=== PATIENT | female | born 1990 | race Caucasian/White ===

== ENCOUNTER 2019-03-20 15:16 | Day surgery (SDC) | payer OTHER ==
[~2019-03-20] VITALS: Ht 162.6 cm; Wt 58.1 kg
[~2019-03-20 15:16] MED LIST: CIPROFLOXACIN 400MG PREMIX 200 ML IV ONE; DEXAMETHASONE SOD PHOS 4 MG/ML VIAL ONE; FAMOTIDINE 20 MG/2 ML VIAL ONE; IV RINGERS,LACTATED 1000ML 1,000 ML IV SCH; KETOROLAC 30 MG/ML INJ FOR OR. INJ ONE; LIDOCAINE 2% PF 5 ML VIAL. ONE; MIDAZOLAM HCL/PF 2 MG/2 ML VIAL. ONE; ONDANSETRON PF 4 MG/2 ML VIAL. IV PRN; ONDANSETRON PF 4 MG/2 ML VIAL. ONE; PROCHLORPERAZINE 10 MG/2 ML VIAL. IV PRN; PROPOFOL 20 ML IV ONE; fentaNYL PF VIAL 100 MCG/2 ML VIAL IV PRN; fentaNYL PF VIAL 100 MCG/2 ML VIAL ONE
[2019-03-20] MEDS ORDERED: OXYC1TAB15 PO (15:39)
[2019-03-20] MEDS ORDERED: ONDA4TAB7 PO (15:40)
[2019-03-20] MEDS ORDERED: HYDR200T5 PO (15:41)
[2019-03-20] MEDS ORDERED: METH20TA5 PO (15:42)
[2019-03-20] MEDS ORDERED: [UNRECOGNIZED DRUG - OTHER] IM (15:43)
[2019-03-20 15:50] LABS: U PREG PATIENT NEGATIVE (NEG)
[2019-03-20] MEDS ORDERED: CIPROFLOXACIN 400MG PREMIX 200 ML IV ONE (15:51)
[2019-03-20] MEDS ORDERED: diphenhydrAMINE 50 MG/ML VIAL ONE (16:27)
[2019-03-20] MEDS ORDERED: IOHEXOL 350 MG/ML 50 ML VIAL. IV ONE (17:08)
--- NOTE | 2019-03-20 17:30 | PDOC4 ---
OPERATIVE NOTE Date: Date: March 20, 2019 Pre-Op Diagnosis: right ureter stone Post-Op Diagnosis: same Procedure Performed: right ureteroscopy, laser of stone, stent placement Surgeon: Kayla Garcia MD Anesthesia Type: general Blood Loss: 0 Specimans Obtained: none Findings: right distal ureter - embedded Complications: none Operative Note: see dictation KAYLA GARCIA MD March 20, 2019 17:30
[2019-03-20] MEDS ORDERED: TAMS0.4C97 PO (17:37)
[2019-03-20] MEDS ORDERED: OXYB5TAB7 PO (17:37)
--- NOTE | 2019-03-20 17:38 | DISCH ---
DISCHARGE INSTRUCTIONS Condition on Discharge Condition on Discharge: Stable Activity After Discharge Activity Instructions for Disc: No restrictions Driving Instructions after Dis: Do not drive today Diet after Discharge Diet after Discharge: Regular Contacting the [facility] after DC Call your doctor for: Concerns you may have Follow-Up Follow up with: Dr. Garcia in 3 weeks for stent removal. Call [phone] for appointment KAYLA GARCIA MD March 20, 2019 17:38
[2019-03-20] MEDS ORDERED: DESFLURANE 61 TO 120 MINUTES IH ONE (17:47)
[2019-03-20] MEDS: fentaNYL PF VIAL 100 MCG/2 ML VIAL IV PRN ×2 (18:48→19:05)
[2019-03-20 19:00] VITALS: BP 121/71
[2019-03-20] MEDS ORDERED: OXYBUTYNIN CHLORIDE 5 MG TABLET PO ONE (19:00)
--- NOTE | 2019-03-20 19:58 | OP ---
DATE OF SURGERY: 03/20/2019 SURGEON: Kayla Garcia MD SCIENTIFIC AIDE: None. PREOPERATIVE DIAGNOSIS: Right ureter stone. POSTOPERATIVE DIAGNOSIS: Right ureter stone. PROCEDURE PERFORMED: Right ureteroscopy with laser of stone and stent placement and retrograde pyelogram. ANESTHESIA TYPE: General. DESCRIPTION OF PROCEDURE: This is a 29-year-old female with a 4 mm distal right ureter stone. After discussion of risks, benefits and alternatives, she agreed to the above procedure. Informed consent was obtained and the patient was taken to the operating room where general anesthesia was induced. She was placed in dorsal lithotomy position and sterilely prepped and draped. A timeout was performed. A rigid cystoscope was advanced through the urethra and into the bladder. The bladder appeared normal. A guidewire was placed into the distal right ureter, but the wire would not advance beyond the stone. A hydrophilic wire was then used and had difficulty advancing but eventually was able to pass beyond the stone. A ureteral catheter was not advanced over the wire due to obstruction from the stone. The ureter distal to the stone was then dilated with the inner channel of an access sheath very carefully and then the rigid ureteroscope was advanced alongside the wire up to the stone in the distal right ureter. The stone was impacted in the wall of the bladder without evidence of ureteral injury. The stone was then fragmented with the holmium laser in multiple tiny fragments. The scope was advanced up into the mid ureter and no additional stone fragments were identified. A ureteral catheter was then advanced over the wire into the proximal right ureter and a retrograde pyelogram was performed, which showed moderate right hydronephrosis. A guidewire was reintroduced and then the ureteral catheter was removed. A 6 x 24 cm ureteral stent was then advanced over the wire into appropriate position in the ureter. A curl was seen in the renal pelvis and in the bladder. The bladder contents were emptied. The patient was then awakened and taken to the recovery room in stable condition. BLOOD LOSS: None. COMPLICATIONS: None. SPECIMEN: None. KAYLA GARCIA MD DR: [email or web address] JOB#: [id number] / [id number]
== END 2019-03-20 19:00 | disposition home or self-care (01) ==
LOC: SURG 15:16
PROVIDERS: ATTEND Urology
DX: N20.1 Calculus of ureter (principal); F32.9 Major depressive disorder, single episode, unspecified; G43.909 Migraine, unspecified, not intractable, without status migrainosus; Z88.6 Allergy status to analgesic agent; Z88.1 Allergy status to other antibiotic agents; Z88.8 Allergy status to other drugs, medicaments and biological substances; Z87.39 Personal history of other diseases of the musculoskeletal system and connective tissue
CPT/HCPCS: 52356; 76000; 81025; A7015; C1769; C2617; J0744; J1100; J1200; J1885; J2001; J2250; J2405; J2704; J3010; J3490; Q9967